=== PATIENT | male | born 1945 | race Caucasian/White ===

== ENCOUNTER 2017-04-03 02:16 | Inpatient (IN) | payer OTHER ==
[~2017-04-03] VITALS: Ht 175.3 cm; Wt 68.0 kg
[~2017-04-03 02:16] MED LIST: ASPIRIN81 M4 PO; DAILY VALUE1 EACH PO; DULCOLAX5 M1 PO; FERROUS SULFAT324 MG PO; GLUCOPHAGE1000 M1 PO; IBUPROFEN200 M3 PO; LIPITOR40 M1 PO; MIRALAX17 G1 PO; OMEPRAZOLE20 M2 PO
--- NOTE | 2017-04-03 02:25 | ED GI/GU/ABDOMINAL COMPLAINT ---
History of Present Illness General Chief Complaint: Abdominal Pain/Flank Pain Stated Complaint: ABD PAIN,NAUSEA, AND VOMITING S/P FACIAL SUGERY Source: patient Exam Limitations: no limitations Vital Signs & Intake/Output Vital Signs & Intake/Output Vital Signs Date Time Temp Pulse Resp B/P B/P Pulse O2 O2 Flow FiO2 Mean Ox Delivery Rate 04/03 0815 97.0 84 20 133/66 96 Room Air 04/03 0613 98.4 80 20 152/78 94 Room Air 04/03 0431 98.0 72 20 151/71 98 Room Air 04/03 0249 98.5 100 18 128/68 94 Room Air Allergies Coded Allergies: No Known Allergies (08/09/16) Reconcile Medications Atorvastatin Calcium (Lipitor) 40 MG TABLET 1 TAB PO DAILY CHOLESTEROL ( Reported) Bisacodyl (Dulcolax) 5 MG TABLET.DR 2 TAB PO AD PRN constipation Chlorhexidine Gluconate (Peridex) 0.12 % MOUTHWASH MOUTH (Reported) Lansoprazole (Prevacid) 30 MG CAPSULE.DR 1 CAP PO DAILY ACID (Reported) Metformin HCl 500 MG TABLET 1 TAB PO BID BLOOD PRESSURE (Reported) Metoprolol Tartrate (Lopressor) 100 MG TABLET 75 MG PO Q8 BLOOD PRESSURE ( Reported) Petrolatum,White (Aquaphor) 41 % OINT...G. FACIAL DONOR SITE (Reported) Polyethylene Glycol 3350 (Miralax) 17 GRAM POWD.PACK 1 PAC PO DAILY constipation dissolve in water Simethicone (Gas Relief) 40 MG/0.6 ML DROPS.SUSP GAS (Reported) Triage Nurses Notes Reviewed? yes Onset: Gradual Duration: day(s):, waxing and waning Timing: recent history Location: generalized abdomen Radiation: no radiation Activities at Onset: none Prior Abdominal Problems: none Modifying Factors: Worsens With: vomiting. Associated Symptoms: nausea/vomiting HPI: 71-year-old gentleman history of tumor on the right side of his face, status post resection 3 months ago, status post prolonged rehabilitation at [facility], presents with 1-2 day history of nausea and vomiting. He states that, "I can't keep anything down. I keep on vomiting." He has no diarrhea. His last bowel movement was yesterday which was normal. He has no chest pain fever shortness of breath dyspnea lightheadedness. He states that his tumor in his face is stable. He is otherwise well. (NEVILLE QUIROS MD) Past History Travel History Traveled to [place] past 21 day No Medical History Any Pertinent Medical History? 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 No (NEVILLE QUIROS MD) Review of Systems Review of Systems Constitutional: Reports: no symptoms. EENTM: Reports: no symptoms. Respiratory: Reports: no symptoms. Cardiovascular: Reports: no symptoms. GI: Reports: no symptoms. Genitourinary: Reports: no symptoms. Musculoskeletal: Reports: no symptoms. Skin: Reports: no symptoms. Neurological/Psychological: Reports: no symptoms. Hematologic/Endocrine: Reports: no symptoms. Immunologic/Allergic: Reports: no symptoms. All Other Systems: Reviewed and Negative (NEVILLE QUIROS MD) Physical Exam Physical Exam General Appearance: well developed/nourished, mild distress Head: right side of face has a large skin graft covering his right forehead and right eye. Status post surgical changes noted. No sign of active infection. Eyes: Bilateral: normal appearance. Ears, Nose, Throat, Mouth: status post surgical changes with a large skin graft from the right side of the face. Neck: normal inspection, supple, full range of motion Respiratory: normal breath sounds, chest non-tender, no respiratory distress, quiet respiration, lungs clear Cardiovascular: regular rate/rhythm Gastrointestinal: soft, non-tender, no organomegaly, g-tube intact on the left side of his abdomen without drainage or signs of infection., diminished bowel sounds Back: normal inspection, normal range of motion Extremities: normal range of motion Neurologic/Psych: no motor/sensory deficits, awake, alert, oriented x 3 Skin: intact, normal color, warm/dry Core Measures ACS in differential dx? No Severe Sepsis Present: No Septic Shock Present: No (NEVILLE QUIROS MD) Progress Differential Diagnosis: gastroenteritis versus food poisoning versus obstruction versus pancreatitis versus cholecystitis versus other. Plan of Care: Orders Procedure Date/time Status PROTHROMBIN TIME 04/04 600 Active MAGNESIUM 04/04 600 Active GLUCOSE 04/04 600 Active CBC WITHOUT DIFFERENTIAL 04/04 600 Active BASIC ELECTROLYTES PLUS BUN&CR 04/04 600 Active TYPE & SCREEN (NOT X-MATCH) 04/04 06 Active Nothing by Mouth 04/03 L Active Admit to inpatient 04/03 0840 Active Code Status 04/03 815 Active Patient Data 04/03 08 Active TROPONIN LEVEL 04/03 220 Complete LIPASE 04/03 220 Complete HEPATIC FUNCTION PANEL 04/03 220 Complete CBC WITHOUT DIFFERENTIAL 04/03 220 Complete BASIC METABOLIC PANEL 04/03 220 Complete AMYLASE 04/03 220 Complete EKG 04/03 220 Active [id number] VIEW 04/03 UNK Active VTE Mechanical Prophylaxis 04/03 UNK Active Vital Signs 04/03 UNK Active Precautions 04/03 UNK Active NGT 04/03 UNK Active Intake & Output 04/03 UNK Active FingerStick- Glucose 04/03 UNK Active Current Medications Sig/Zena Start time Last Medication Dose Stop Time Status Admin Heparin Sodium 5,000 UNIT Q8 04/03 1400 UNVr (Porcine) Metoprolol Tartrate 75 MG Q8 04/03 1400 UNVr (Lopressor) Insulin Human Regular 0 Q6 04/03 1200 AC (NovoLIN R) Famotidine 20 MG BID 04/03 1000 UNVr (Pepcid) Acetaminophen 1,000 MG Q6P PRN 04/03 0830 AC (Ofirmev) N/A 1 UNIT (No Carrier) Morphine Sulfate 2 MG Q4-6 PRN PRN 04/03 0830 AC (Morphine) Dextrose/Sodium 1,000 ML Q10H 04/03 0815 AC 04/03 Chloride 0825 (D5-Normal Saline) Ondansetron HCl 4 MG Q6P PRN 04/03 0815 AC (Zofran) Laboratory Tests 04/03/17 0246: Anion Gap 14, Estimated GFR > 60, BUN/Creatinine Ratio 32.0 H, Glucose 199 H, Calcium 9.9, Total Bilirubin 0.8, Direct Bilirubin 0.3, AST 24, ALT 25, Alkaline Phosphatase 123, Troponin I < 0.01, Total Protein 7.9, Albumin 4.1, Amylase 70, Lipase 50, CBC w Diff NO MAN DIFF REQ, RBC 4.43 L, MCV 83.7, MCH 26.5 L, RDW 16.9 H, MPV 7.7, Gran % 69.5, Lymphocytes % 19.4 L, Monocytes % 10.9 H, Eosinophils % 0, Basophils % 0.2, Absolute Granulocytes 7.6 H, Absolute Lymphocytes 2.1, Absolute Monocytes 1.2 H, Absolute Eosinophils 0, Absolute Basophils 0, PUBS MCHC 31.6 L Diagnostic Imaging: Viewed by Me: CT Scan. Discussed w/RAD: CT Scan. Radiology Impression: abd/pelvic ct... ileoileal intussusception... full report below. Initial ED EKG: normal axis, normal intervals, normal p-waves, normal QRS complex, normal sinus rhythm Hand-Off Endorsed To: AVIS OLEARY MD Endorsed Time: 0700 Pending: consult Comments: PATIENT: FRANCIS OLEARY PRESENT AGE: 71 PATIENT ACCOUNT NO: [id number] : 46 LOCATION: [facility] ORDERING PHYSICIAN: NEVILEL QUIROS MD SERVICE DATE: 04/03/17 EXAM TYPE: CAT - CT ABD & PELVIS W/O IV CONTRAS EXAMINATION: CT ABDOMEN AND PELVIS WITHOUT CONTRAST CLINICAL INFORMATION: Vomiting. COMPARISON: FDG PET/CT whole body 11/08/2016. TECHNIQUE: Multidetector volumetric imaging was performed from the superior aspect of the liver through the pubic symphysis. Sagittal and coronal reformatted images were obtained on the technologist's workstation. DLP: 283.54 mGy-cm FINDINGS: LUNG BASES: There is minimal bibasilar subsegmental atelectasis. No pleural or perineural invasion. LIVER, GALLBLADDER, AND BILIARY TREE: Unenhanced liver attenuation is homogeneous and there is no evidence of a discrete hepatic parenchymal mass. The gallbladder is unremarkable with no evidence of radiopaque gallstones, gallbladder wall thickening, or obvious pericholecystic inflammatory changes. PANCREAS: Unremarkable. SPLEEN: Unremarkable. 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 KIDNEYS AND URETERS: Kidneys are symmetric in size. There is no hydroureteronephrosis. No abnormal perinephric inflammation or collection. No abnormal mass or calcifications visualized along the expected course of the right or left ureters. BLADDER: Unremarkable. GASTROINTESTINAL TRACT: A gastrostomy tube is in place. There is an ileoileal intussusception within the right lower quadrant and circumferential mucosal edema surrounding the intussusceptum have substantially progressed when compared to prior imaging. This intussusception causes a high-grade small bowel obstruction. Air-fluid levels are visualized within the majority of proximal small bowel loops. Numerous diverticula are visualized within the sigmoid:. ABDOMINAL WALL: There is a gastrostomy tube in place. The abdominal wall is otherwise intact. LYMPH NODES: No pathologically enlarged mesenteric or retroperitoneal lymph nodes. VASCULAR: Heavily calcified atheromatous plaque involves the abdominal aorta and iliac vessels. Inferior vena cava is unremarkable. PELVIC VISCERA: Unremarkable. OSSEOUS STRUCTURES: There is no acute osseous finding. Specifically no worrisome lytic or blastic osseous lesion. IMPRESSION: There is an ileoileal intussusception within the right lower quadrant and there is circumferential mucosal edema surrounding the intussusceptum that has substantially increased when compared to prior imaging. This finding causes severe high-grade small bowel obstruction. In an adult that presents with intussusception a leading small bowel mucosal mass should be considered. DICTATED BY: SALINA REYES MD DATE/TIME DICTATED:04/03/17541 FLATWORK TIER:LENOORA DATE/TIME TRANSCRIBED:04/03/17541 CONFIDENTIAL, DO NOT COPY WITHOUT APPROPRIATE AUTHORIZATION. <Electronically signed in Other Vendor System> SIGNED BY: SALINA REYES MD 04/03 0556 (GUMARO DENSON,NEVILLE Mares) Comments: 04/03/2017 7:22:47 AM patient signed out to me by Dr. Quiros at shift change lead. 04/03/2017 8:44:11 AM Francis has been treated with intravenous fluids with resolution of his presenting tachycardia. He has been evaluated by the surgical service and will be admitted for ileal intussusception and resulting small bowel obstruction. (MARVIN DENSON,AVIS Thompson) Departure Departure Disposition: STILL A PATIENT Condition: Stable Referrals: DIANNE TOBIAS MD Departure Forms: Customer Survey General Discharge Information Comments 04/03/17, 6:37am... discussed with dr. valles...He advocated opening the gastrostomy tube. Suction not needed. Discussed with surgical PA who will evaluate. pt signed out to dr. oleary at 04/03/17, 7am. (GUMARO DENSON,NEVILLE Mares) Departure Clinical Impression Primary Impression: Intussusception Secondary Impressions: Small bowel obstruction Admission Note Spoke With: JOSE DENSON,DANA Robison Documentation of Exam: Documentation of any treatments & extenuating circumstances including Concerns Regarding Discharge (functional status, medication knowledge or non-compliance, living conditions, etc.) that warrant an admission rather than observation: Patient has a small bowel obstruction as a result of an ileal intussusception. The patient is at very high risk of dehydration due to decreased pedal intake secondary to vomiting, along with worsening small bowel obstruction, abdominal pain, perforation, peritonitis and mortality. The patient requires IV fluids to prevent dehydration and decompression of the gastrointestinal tract. Patient should have serial abdominal examinations and imaging studies as indicated. If symptoms do not resolve with bowel rest and surgical exploration should be considered. Given this patient's advanced age and medical comorbidities I feel he will require a multiple day hospitalization. (MARVIN DENSON,AVIS Thompson) Critical Care Note Critical Care Note Critical Care Time: 30-74 min (MARVIN DESNON,AVIS Thompson)
--- NOTE | 2017-04-03 02:31 | NUR ---
PT TO TRIAGE WITH SON. PT REPORTS ABD PAIN, N/V. PT HAD FACIAL SURGERY D/T CANCER 3 MONTHS AGO AND WAS AT [facility] UNTIL 1 WEEK AGO. PT HAS G TUBE BUT CAN STILL SWALLOW.
--- NOTE | 2017-04-03 02:32 | NUR ---
PT DENIES CP/SOB.
--- NOTE | 2017-04-03 02:48 | NUR ---
MD NAIK AT BEDSIDE TO SEAN
--- NOTE | 2017-04-03 02:56 | NUR ---
LABS OBTAINED VIA [facility], SENT TO LAB (1SST,1LAV,1BLUE,1GRAY,1PINK)
--- NOTE | 2017-04-03 03:00 | NUR ---
MEDICATED WITH ZOFRAN AND PEPCID PER eMAR FOR NAUSEA AND ACTIVE VOMITING. ASPIRATED APPROX 20ML STOMACH CONTENTS FROM G-TUBE BEFORE FEELING RESISTANCE. 20ML WATER FLUSHED IN AND TUBE CLAMPED. TOLERATED WELL. WILL CONT TO MONITOR. CONTINUES TO ENDORSE INTERMITTENT ABDOMINAL PAINS, NONE WITH PALPATION OF ABDOMEN
[2017-04-03 03:08] LABS: ABSOLUTE BASOPHIL COUNT 0 /CUMM (0.0-0.2); ABSOLUTE EOSINOPHIL COUNT 0 /CUMM (0.0-0.7); ABSOLUTE GRANULOCYTE CT 7.6 /CUMM (1.4-6.5); ABSOLUTE LYMPH COUNT 2.1 /CUMM (1.2-3.4); ABSOLUTE MONOCYTE COUNT 1.2 /CUMM (0.10-0.60); BASOPHIL % 0.2 % (0.0-2.0); EOSINOPHIL % 0 % (0-5); GRANULOCYTE % 69.5 % (42.2-75.2); HEMATOCRIT 37.1 % (42-52); MEAN CORPUSCULAR HGB 26.5 PG (27.0-31.0); MEAN CORPUSCULAR HGB CONC 31.6 G/DL (33.0-37.0); MEAN CORPUSCULAR VOLUME 83.7 FL (80.0-94.0); MEAN PLATELET VOLUME 7.7 FL (7.4-10.4); PLATELET COUNT 360 /CUMM (130-400); RBC DISTRIBUTION WIDTH 16.9 % (11.5-14.5); RED BLOOD CELL CT 4.43 /CUMM (4.70-6.10); WHITE BLOOD CELL COUNT 10.9 /CUMM (4.8-10.8)
--- NOTE | 2017-04-03 03:10 | NUR ---
Report received from Flavia RN, pt care assumed. Pt resting comfortably on stretcher with family at bedside. Pt awaiting lab results.
[2017-04-03] MEDS ORDERED: LIPITOR40 M1 PO (03:15)
[2017-04-03] MEDS ORDERED: METFORMIN HCL500 M3 PO (03:16)
[2017-04-03] MEDS ORDERED: LOPRESSOR100 M1 PO (03:19)
[2017-04-03] MEDS ORDERED: AQUAPHOR396 GM (03:19)
[2017-04-03] MEDS ORDERED: PERIDEX473 ML (03:20)
[2017-04-03] MEDS ORDERED: GAS RELIEF40 MG/0.2 (03:21)
[2017-04-03] MEDS ORDERED: PREVACID30 M1 PO (03:21)
--- NOTE | 2017-04-03 03:30 | NUR ---
IV NS BOLUS STARTED PER eMAR. PT LIGHTS DIMMED PER PT REQUEST. PT RESTING COMFORTABLY AT THIS TIME. FAMILY REMAINS AT BEDSIDE.
--- NOTE | 2017-04-03 04:16 | NUR ---
PT RESTING COMFORTABLY AT THIS TIME WITH NO COMPLAINTS, IV NS BOLUS INFUSING. PT AND FAMILY UPDATED THAT PT AWAITING CT FOR IMAGING OF ABD DUE TO VOMITTING
--- NOTE | 2017-04-03 04:20 | NUR ---
PT REPORTS RELIEF OF VOMITTING. FAMILY REMAINS AT BEDSIDE
--- NOTE | 2017-04-03 04:21 | NUR ---
PT TO CT SCAN WITH SENIOR COUNSEL
--- NOTE | 2017-04-03 04:30 | NUR ---
Pt back from CT scan with 4th grade teacher. Pt denies any pain at this time. VSS
--- NOTE | 2017-04-03 05:18 | NUR ---
Pt awaiting CT results. Pt remains pain free and resting comfortably on stretcher. Family at bedside
--- NOTE | 2017-04-03 05:56 | CT SCAN REPORT ---
EXAMINATION: CT ABDOMEN AND PELVIS WITHOUT CONTRAST CLINICAL INFORMATION: Vomiting. COMPARISON: FDG PET/CT whole body 11/08/2016. TECHNIQUE: Multidetector volumetric imaging was performed from the superior aspect of the liver through the pubic symphysis. Sagittal and coronal reformatted images were obtained on the technologist's workstation. DLP: 283.54 mGy-cm FINDINGS: LUNG BASES: There is minimal bibasilar subsegmental atelectasis. No pleural or perineural invasion. LIVER, GALLBLADDER, AND BILIARY TREE: Unenhanced liver attenuation is homogeneous and there is no evidence of a discrete hepatic parenchymal mass. The gallbladder is unremarkable with no evidence of radiopaque gallstones, gallbladder wall thickening, or obvious pericholecystic inflammatory changes. PANCREAS: Unremarkable. SPLEEN: Unremarkable. 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 KIDNEYS AND URETERS: Kidneys are symmetric in size. There is no hydroureteronephrosis. No abnormal perinephric inflammation or collection. No abnormal mass or calcifications visualized along the expected course of the right or left ureters. BLADDER: Unremarkable. GASTROINTESTINAL TRACT: A gastrostomy tube is in place. There is an ileoileal intussusception within the right lower quadrant and circumferential mucosal edema surrounding the intussusceptum have substantially progressed when compared to prior imaging. This intussusception causes a high-grade small bowel obstruction. Air-fluid levels are visualized within the majority of proximal small bowel loops. Numerous diverticula are visualized within the sigmoid:. ABDOMINAL WALL: There is a gastrostomy tube in place. The abdominal wall is otherwise intact. LYMPH NODES: No pathologically enlarged mesenteric or retroperitoneal lymph nodes. VASCULAR: Heavily calcified atheromatous plaque involves the abdominal aorta and iliac vessels. Inferior vena cava is unremarkable. PELVIC VISCERA: Unremarkable. OSSEOUS STRUCTURES: There is no acute osseous finding. Specifically no worrisome lytic or blastic osseous lesion. IMPRESSION: There is an ileoileal intussusception within the right lower quadrant and there is circumferential mucosal edema surrounding the intussusceptum that has substantially increased when compared to prior imaging. This finding causes severe high-grade small bowel obstruction. In an adult that presents with intussusception a leading small bowel mucosal mass should be considered.
--- NOTE | 2017-04-03 06:11 | NUR ---
Dr. Quiros at bedside for re-eval and to discuss CT scan results with patient and family. Pt aware of plan of care, to be admitted to hosptal. Per son he will return later in the morning and can be reached via cell phone if there is any issue. VSS as noted.
--- NOTE | 2017-04-03 07:05 | NUR ---
ASSUMED CARE, SURGICAL PA AT BEDSIDE.
--- NOTE | 2017-04-03 08:20 | NUR ---
X-RAY AT BEDSIDE. FINGERSTICK 68. D5NS @ 100 INFUSING PER EMAR. AWAITING GEN MED BED. SON AT BEDSIDE. PT AND SON AWARE OF NPO STATUS. Informed waiting has been performed.
--- NOTE | 2017-04-03 08:24 | Admission Core Measures ---
Admission Lab Results I reviewed the following labs: Laboratory Tests 04/03 0246 Chemistry Sodium (137 - 145 mmol/L) 138 Potassium (3.5 - 5.1 mmol/L) 4.5 Chloride (98 - 107 mmol/L) 95 L Carbon Dioxide (22 - 30 mmol/L) 29 Anion Gap (5 - 16) 14 BUN (9 - 20 mg/dL) 32 H Creatinine (0.7 - 1.2 mg/dL) 1.0 Estimated GFR (>60 ml/min) > 60 BUN/Creatinine Ratio (7 - 25 %) 32.0 H Glucose (65 - 99 mg/dL) 199 H Calcium (8.4 - 10.2 mg/dL) 9.9 Total Bilirubin (0.2 - 1.3 mg/dL) 0.8 Direct Bilirubin (< 0.4 mg/dL) 0.3 AST (17 - 59 U/L) 24 ALT (21 - 72 U/L) 25 Alkaline Phosphatase (< 127 U/L) 123 Troponin I (<0.11 ng/ml) < 0.01 Total Protein (6.3 - 8.2 g/dL) 7.9 Albumin (3.5 - 5.0 g/dL) 4.1 Amylase (30 - 110 U/L) 70 Lipase (23 - 300 U/L) 50 Hematology CBC w Diff NO MAN DIFF REQ WBC (4.8 - 10.8 /CUMM) 10.9 H RBC (4.70 - 6.10 /CUMM) 4.43 L Hgb (14.0 - 18.0 G/DL) 11.7 L Hct (42 - 52 %) 37.1 L MCV (80.0 - 94.0 FL) 83.7 MCH (27.0 - 31.0 PG) 26.5 L RDW (11.5 - 14.5 %) 16.9 H Plt Count (130 - 400 /CUMM) 360 MPV (7.4 - 10.4 FL) 7.7 Gran % (42.2 - 75.2 %) 69.5 Lymphocytes % (20.5 - 51.1 %) 19.4 L Monocytes % (1.7 - 9.3 %) 10.9 H Eosinophils % (0 - 5 %) 0 Basophils % (0.0 - 2.0 %) 0.2 Absolute Granulocytes (1.4 - 6.5 /CUMM) 7.6 H Absolute Lymphocytes (1.2 - 3.4 /CUMM) 2.1 Absolute Monocytes (0.10 - 0.60 /CUMM) 1.2 H Absolute Eosinophils (0.0 - 0.7 /CUMM) 0 Absolute Basophils (0.0 - 0.2 /CUMM) 0 PUBS MCHC (33.0 - 37.0 G/DL) 31.6 L Admission Meds I reviewed the following Meds: Current Medications Sig/Zena Start time Last Medication Dose Stop Time Status Admin Acetaminophen 1,000 MG Q6P PRN 04/03 0830 AC (Ofirmev) N/A 1 UNIT (No Carrier) Dextrose/Sodium 1,000 ML Q10H 04/03 0815 UNVr Chloride (D5-Normal Saline) Famotidine 20 MG BID 04/03 1000 UNVr (Pepcid) Heparin Sodium 5,000 UNIT Q8 04/03 1400 UNVr (Porcine) Insulin Human Regular 0 Q6 04/03 1200 UNVr (NovoLIN R) Metoprolol Tartrate 75 MG Q8 04/03 1400 UNVr (Lopressor) Morphine Sulfate 2 MG Q4-6 PRN PRN 04/03 0830 AC (Morphine) Ondansetron HCl 4 MG Q6P PRN 04/03 0815 UNVr (Zofran) Acute Coronary Syndrome Inclusion Criteria ACS Diagnosis No Inpatient Core Measures LDL Reminder: If No, please order W/I first 24hr of stay Congestive Heart Failure Inclusion Criteria CHF Diagnosis No Cerebrovascular accident Inclusion Criteria CVA/TIA Diagnosis No Inpatient Core Measures Bedside Swallow Eval Reminder: If BSE failed, place ST order Antithrombotic Reminder: Order Antithrombotic Medication by end of day 2 Antithrombotic Reminder: Document Reason Antithrombotic Not ordered by end of day 2 AFIB/Flutter Reminder: If Present, add to problem list AFIB/Flutter Reminder: Order Anticoag Medication for pts with AFIB/Flutter Atherosclerosis Reminder: If Present, add to problem list LDL Reminder: If No, please order W/I first 24hr of stay PT Order Reminder: If No, please order Venous thromboembolism Inpatient Core Measures VTE Risk Factors: Age > 40, Surgery No Mech VTE prophylaxis d/t No contraindications No VTE Pharm Prophylaxis d/t No contraindications Inclusion Criteria - Per Current guidelines, there needs to be overlap - treatment for the first 5 days of Warfarin therapy. - Parenteral Anticoagulation (IV or SC) needs to be - given along with Warfarin therapy. VTE Diagnosis No VTE Type NONE VTE Confirmed by (Test) NONE Problem List As ranked by this Provider includes Assessment & Plan 1. Ileal intussusception 2. Small bowel obstruction HOME MEDS Home Med List Atorvastatin Calcium (Lipitor) 40 MG TABLET 1 TAB PO DAILY CHOLESTEROL ( Reported) Bisacodyl (Dulcolax) 5 MG TABLET.DR 2 TAB PO AD PRN constipation Lansoprazole (Prevacid) 30 MG CAPSULE.DR 1 CAP PO DAILY ACID (Reported) Metformin HCl 500 MG TABLET 1 TAB PO BID BLOOD PRESSURE (Reported) Metoprolol Tartrate (Lopressor) 100 MG TABLET 75 MG PO Q8 BLOOD PRESSURE ( Reported) Polyethylene Glycol 3350 (Miralax) 17 GRAM POWD.PACK 1 PAC PO DAILY constipation
--- NOTE | 2017-04-03 08:55 | RADIOLOGY REPORT ---
EXAMINATION: XR ABDOMEN CLINICAL INDICATION: Small bowel obstruction. Nasogastric tube placed via gastrostomy. COMPARISON: CT scan of the abdomen and pelvis earlier 04/03/2017. TECHNIQUE: AP view of the abdomen. FINDINGS: Since the prior study, a tube has been passed through the gastrostomy, and is coiled within the gastric lumen. The small bowel loops are still dilated in the left upper abdomen. A linear metallic object is redemonstrated in the epigastrium to the left of midline. Multiple surgical clips are seen projected over the right upper abdomen. The osseous structures are unremarkable. IMPRESSION: 1. There is a nasogastric tube entering the stomach through the gastrostomy, which is coiled within the gastric lumen. 2. Persistent dilatation of the small bowel loops in the left upper abdomen.
--- NOTE | 2017-04-03 09:00 | NUR ---
PT'S SON PAUL IS LEAVING, WOULD LIKE TO BE CALLED WHEN PT GETS A ROOM. [phone].
--- NOTE | 2017-04-03 09:15 | NUR ---
SPOKE WITH SEMICONDUCTOR BONDER DAHLIA ABOUT A BED FOR PT, SHE STATED "NOT NOW". PT AWARE OF CONTINUED WAIT FOR GEN MED BED. Informed waiting has been performed.
--- NOTE | 2017-04-03 09:54 | NUR ---
DR GARCIA AT BEDSIDE.
--- NOTE | 2017-04-03 10:54 | NUR ---
MAGGY TO AWAIT GEN MED BED. STRIPPER MACHINE OPERATOR DAHLIA CALLED, NO BED YET. PT AND FAMILY AWARE OF CONTINUED DELAY. Informed waiting has been performed.
[2017-04-03 11:00] VITALS: BP 104/53
--- NOTE | 2017-04-03 12:00 | NUR ---
MEDICATED WITH SC INSULIN PER EMAR AND SLIDING SCALE. PT CONTINUES TO AWAIT GEN MED BED. PT BEGINNING TO GET UPSET WITH WAIT TIME FOR BED. PT EDUCATED ON PROCESS OF ASSIGNING BEDS. Informed waiting has been performed.
--- NOTE | 2017-04-03 12:30 | NUR ---
PT CONTINUES TO AWAIT GEN [facility] BED. PT EDUCATED ON NEED FOR ADMISSION, IVF, NPO STATUS AND NGT TO PEG TUBE TO LOW WALL SUCTION. PT UNDERSTANDS NEED FOR ADMISSION, IN AGREEMENT WITH PLAN. WILL CONTINUE TO MONITOR. Informed waiting has been performed.
--- NOTE | 2017-04-03 13:00 | NUR ---
PT REQUESTING TO SEE SURGICAL LILIA BEASLEY. SPOKE WITH GALE WHO IS UNABLE TO COME SEE PT AT THIS TIME.
--- NOTE | 2017-04-03 13:16 | NUR ---
CONT TO AWAIT BED,PER BOOK SEWING MACHINE OPERATOR SAME DAYS MUST BE PLACED 1ST.
[2017-04-03 13:40] VITALS: BP 115/60
--- NOTE | 2017-04-03 14:15 | NUR ---
THIS RN WENT IN TO SPEAK WITH PT, EXPLAINED HOW I AM THE CHARGE NURSE ON DUTY CURRENTLY. EXPLAINED HOW WE ARE CURRENTLY AWAITING A BED UPSTAIRS. PT NOTED TO BE VERY FRUSTRATED. STATES HE HAS NOT SEEN ANY OF HIS PROVIDERS SINCE 930 THIS AM. STATES IF HE DOES NOT GET SEEN SOON HE WILL WALK OUT, STATES "I CAN SIT HERE AND DO THIS ALL DAY AT HOME IF I WANTED TO." SPOKE WITH SURGICAL PA, WHO STATES SHE IS UNABLE TO COME DOWN TO SPEAK WITH PT CURRENTLY. STAMP COLLECTOR PAGED AT THIS TIME.
--- NOTE | 2017-04-03 14:30 | NUR ---
BUSINESS COMMUNICATIONS INSTRUCTOR DAHLIA CALVO TO SPEAK WITH PT.
--- NOTE | 2017-04-03 14:35 | NUR ---
NURSING INVENTORY ASSOCIATE MADE AWARE OF SITUATION WITH PT AND SURGICAL TEAM. INVENTORY ASSOCIATE WENT IN TO SPEAK WITH PT HERSELF, STATES HE ONLY WANTS TO SPEAK WITH A PROVIDER CURRENTLY AND NOT NURSING. NURSING INVENTORY ASSOCIATE TO SPEAK WITH SURGICAL TEAM.
--- NOTE | 2017-04-03 15:20 | NUR ---
REPORT HANDED OFF TO IBETH HANLEY.
--- NOTE | 2017-04-03 15:32 | NUR ---
PT ASSIGNED TO ROOM 233
--- NOTE | 2017-04-03 15:33 | NUR ---
PT ASKING TO LEAVE AMA, CALLED GALE RODRIGUES, AND SHE STATES SHE WILL BE DOWN [facility]. PT ASKED TO WAIT TO SPEAK WITH PA. PT EXPLAINED WHAT HE IS WAITING FOR AND THE POC, BUT DOES NOT WANT TO WAIT ANY LONGER FOR HIS BED OR PROVIDER
--- NOTE | 2017-04-03 15:38 | NUR ---
PT DEMANDED TO THIS RN TO HAVE HIS IV REMOVED. PT STATES HE IS LEAVING RIGHT NOW AND WILL NOT WAIT ANY LONGER TO SPEAK TO THE DOCTOR. IV REMOVED. LEFT LEFT EMERGENCY DEPARTMENT WITH ABDIRASHID PHELPS AND SAID HE WILL FOLLOW UP WITH DR GARCIA. SENIOR PEOPLESOFT DEVELOPER GA Leong RN NOTIFIED. DR WONG NOTIFIED.
== END 2017-04-03 15:38 | disposition left against medical advice (07) | DRG 390 ==
LOC: ERH 02:16 → ERHI 08:40 → ENRESERV 15:14 → CANRESERV 15:14 → ERHI 15:38
PROVIDERS: Pediatrics; ADMIT Surgery
DX: K56.60 Unspecified intestinal obstruction (principal); Z93.1 Gastrostomy status; K56.1 Intussusception; Z98.890 Other specified postprocedural states
CPT/HCPCS: ERO; 74000; 74176; 82436; 93005; 93010; 96361; 96374; 96375; 99291; J0131; J1644; J1815; J2405; J7042

== ENCOUNTER 2017-04-06 02:19 | Emergency (ER) | payer OTHER ==
[~2017-04-06] VITALS: Ht 175.3 cm; Wt 74.8 kg
[~2017-04-06 02:19] MED LIST changes: +AQUAPHOR396 GM; +GAS RELIEF40 MG/0.2; +LOPRESSOR100 M1 PO; +METFORMIN HCL500 M3 PO; +PERIDEX473 ML; +PREVACID30 M1 PO
--- NOTE | 2017-04-06 02:35 | ED GI/GU/ABDOMINAL COMPLAINT ---
History of Present Illness General Chief Complaint: Abdominal Pain/Flank Pain Stated Complaint: SEEN HERE THIS WEEK ABD PAIN "INTESTIONAL ISSUES" Source: patient Exam Limitations: no limitations Vital Signs & Intake/Output Vital Signs & Intake/Output Vital Signs Date Time Temp Pulse Resp B/P B/P Pulse O2 O2 Flow FiO2 Mean Ox Delivery Rate 04/06 0237 96.8 82 18 163/75 97 Room Air Allergies Coded Allergies: No Known Allergies (08/09/16) Reconcile Medications Atorvastatin Calcium (Lipitor) 40 MG TABLET 1 TAB PO DAILY CHOLESTEROL ( Reported) Bisacodyl (Dulcolax) 5 MG TABLET.DR 2 TAB PO AD PRN constipation Chlorhexidine Gluconate (Peridex) 0.12 % MOUTHWASH MOUTH (Reported) Lansoprazole (Prevacid) 30 MG CAPSULE.DR 1 CAP PO DAILY ACID (Reported) Metformin HCl 500 MG TABLET 1 TAB PO BID BLOOD PRESSURE (Reported) Metoprolol Tartrate (Lopressor) 100 MG TABLET 75 MG PO Q8 BLOOD PRESSURE ( Reported) Petrolatum,White (Aquaphor) 41 % OINT...G. FACIAL DONOR SITE (Reported) Polyethylene Glycol 3350 (Miralax) 17 GRAM POWD.PACK 1 PAC PO DAILY constipation dissolve in water Simethicone (Gas Relief) 40 MG/0.6 ML DROPS.SUSP GAS (Reported) Triage Nurses Notes Reviewed? yes Onset: Gradual Duration: day(s): Timing: recent history Quality/Severity: cramping Location: generalized abdomen Radiation: no radiation Activities at Onset: none Prior Abdominal Problems: similar symptoms Modifying Factors: Worsens With: eating. Associated Symptoms: abdominal pain, nausea/vomiting HPI: 71-year-old gentleman history of craniopharyngioma status post resection, status post gastrostomy tube, presents with 3-4 hours of abdominal discomfort and bloating. He was seen 3 days ago and was diagnosed with an intussusception. He was admitted to the hospital, but left AMA when he was unable to get a bed. He states, "I hardly eat anything. But then I had dinner last night. Then, around 11:30 I started having really really bad abdominal pain." He notes no vomiting. His last bowel movement was 2 days ago in the morning. He has no fever chills dysuria shortness of breath or chest pain. Past History Medical History Any Pertinent Medical History? 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 No Review of Systems Review of Systems Constitutional: Reports: no symptoms. EENTM: Reports: no symptoms. Respiratory: Reports: no symptoms. Cardiovascular: Reports: no symptoms. GI: Reports: no symptoms. Genitourinary: Reports: no symptoms. Musculoskeletal: Reports: no symptoms. Skin: Reports: no symptoms. Neurological/Psychological: Reports: no symptoms. Hematologic/Endocrine: Reports: no symptoms. Immunologic/Allergic: Reports: no symptoms. All Other Systems: Reviewed and Negative Physical Exam Physical Exam General Appearance: well developed/nourished, mild distress Head: atraumatic, normal appearance Eyes: Bilateral: normal appearance. Ears, Nose, Throat, Mouth: hearing grossly normal Neck: normal inspection, supple, full range of motion, normal alignment Respiratory: normal breath sounds, chest non-tender, no respiratory distress, quiet respiration, lungs clear Cardiovascular: regular rate/rhythm Gastrointestinal: normal bowel sounds, soft, mild diffuse tenderness. Mild distention. Diminished bowel sounds. Back: normal inspection, normal range of motion Extremities: normal range of motion Neurologic/Psych: no motor/sensory deficits, awake, alert, oriented x 3 Skin: intact, normal color, warm/dry Core Measures ACS in differential dx? No Severe Sepsis Present: No Septic Shock Present: No Progress Differential Diagnosis: intussusception versus small bowel obstruction versus other. Plan of Care: Orders Procedure Date/time Status TROPONIN LEVEL 04/06 227 Complete LIPASE 04/06 227 Complete LACTIC ACID 04/06 227 Complete HEPATIC FUNCTION PANEL 04/06 227 Complete CBC WITHOUT DIFFERENTIAL 04/06 227 Complete BASIC METABOLIC PANEL 04/06 227 Complete AMYLASE 04/06 227 Complete EKG 04/06 227 Active Laboratory Tests 04/06/17 0313: Anion Gap 10, Estimated GFR > 60, BUN/Creatinine Ratio 30.0 H, Glucose 204 H, Lactic Acid 1.4, Calcium 8.7, Total Bilirubin 0.5, Direct Bilirubin 0.3, AST 20, ALT 28, Alkaline Phosphatase 108, Troponin I < 0.01, Total Protein 6.6, Albumin 3.4 L, Amylase 87, Lipase 196, CBC w Diff NO MAN DIFF REQ, RBC 3.93 L, MCV 83.3, MCH 26.5 L, RDW 16.5 H, MPV 7.4, Gran % 81.4 H, Lymphocytes % 12.1 L, Monocytes % 6.3, Eosinophils % 0, Basophils % 0.2, Absolute Granulocytes 6.9 H, Absolute Lymphocytes 1.0 L, Absolute Monocytes 0.5, Absolute Eosinophils 0, Absolute Basophils 0, PUBS MCHC 31.8 L Diagnostic Imaging: Viewed by Me: CT Scan. Discussed w/RAD: CT Scan. Radiology Impression: abd/pelvic ct ... resolution of intussusception...full report below Initial ED EKG: normal axis, normal intervals, normal p-waves, normal QRS complex, normal sinus rhythm Comments: PATIENT: CHEPE GUEVARA PRESENT AGE: 71 PATIENT ACCOUNT NO: [id number] : 46 LOCATION: [facility] ORDERING PHYSICIAN: NEVILLE NAIK MD SERVICE DATE: 04/06/17 EXAM TYPE: CAT - CT ABD & PELVIS W/O IV CONTRAS EXAMINATION: CT ABDOMEN AND PELVIS WITHOUT CONTRAST CLINICAL INFORMATION: Abdominal pain. History of intussusception. Small bowel obstruction. COMPARISON: CT scan of the abdomen and pelvis 04/03/2017. TECHNIQUE: Multidetector volumetric imaging was performed from the superior aspect of the liver through the pubic symphysis. Sagittal and coronal reformatted images were obtained on the technologist's workstation. DLP: 300.32 mGy-cm FINDINGS: LUNG BASES: There is mild bibasilar subsegmental atelectasis. No pleural pericardial effusion. LIVER, GALLBLADDER, AND BILIARY TREE: Liver attenuation is homogeneous with no evidence of a discrete hepatic parenchymal mass. The gallbladder is unremarkable with no evidence of radiopaque gallstones, gallbladder wall thickening, or obvious pericholecystic inflammatory changes. PANCREAS: Unremarkable. SPLEEN: Unremarkable. ADRENAL GLANDS: An ovoid low-density rounded lesion involving the posterior limb of the right adrenal gland is redemonstrated. KIDNEYS AND URETERS: The kidneys are normal in size, shape, and attenuation. No hydronephrosis, hydroureter, or calculi seen. No perinephric stranding. BLADDER: Unremarkable. GASTROINTESTINAL TRACT: The ileoileal intussusception appears to have resolved. There is mild nonspecific stranding within the mesenteric fat of the distal small bowel. There is a small volume of fluid layering within the pelvis. No free intraperitoneal air. Innumerable diverticula are visualized primarily affecting the sigmoid colon. No evidence of small bowel obstruction. Of note there is a gastrostomy tube with its tip located within the body of the stomach. ABDOMINAL WALL: No significant hernia is appreciated. LYMPH NODES: There are no pathologically enlarged mesenteric or retroperitoneal lymph nodes. VASCULAR: Heavily calcified atheromatous plaque involves the abdominal aorta and iliac vessels. The unenhanced aorta and inferior vena cava are otherwise unremarkable. OSSEOUS STRUCTURES: There is no acute osseous finding. No worrisome lytic or blastic osseous lesion. IMPRESSION: The ileoileal intussusception appears to have resolved when compared to the most recent prior examination from 04/03/2017. No small bowel obstruction. There is mild residual nonspecific stranding within the mesenteric fat of the distal small bowel. A small volume of simple fluid layers within the pelvis. Otherwise stable examination. There is extensive diverticulosis primarily affecting the sigmoid colon. DICTATED BY: SALINA REYES MD DATE/TIME DICTATED:04/06/17416 SAUTE CHEF:LEONORA DATE/TIME TRANSCRIBED:04/06/17416 CONFIDENTIAL, DO NOT COPY WITHOUT APPROPRIATE AUTHORIZATION. <Electronically signed in Other Vendor System> SIGNED BY: SALINA REYES MD 04/06 0430 Departure Departure Disposition: HOME OR SELF CARE Condition: Stable Clinical Impression Primary Impression: Abdominal pain Referrals: PATIENT HAS NO PRIMARY CARE DR (PCP/Family) Departure Forms: Customer Survey General Discharge Information Comments 04/06/17, 5am... pt reports that he began feeling better "just like that... in an instant," upon arrival to the ED.... CT SCAN negative for intussusception. I suspect that his sbo self-reduced. We discussed this at great length. Mr. Guevara would like to go home. No vomiting in ED. He is feeling well. Pt referred to Dr. Perez. Close follow up advised.
[2017-04-06 03:26] LABS: ABSOLUTE BASOPHIL COUNT 0 /CUMM (0.0-0.2); ABSOLUTE EOSINOPHIL COUNT 0 /CUMM (0.0-0.7); ABSOLUTE GRANULOCYTE CT 6.9 /CUMM (1.4-6.5); ABSOLUTE MONOCYTE COUNT 0.5 /CUMM (0.10-0.60); BASOPHIL % 0.2 % (0.0-2.0); EOSINOPHIL % 0 % (0-5); GRANULOCYTE % 81.4 % (42.2-75.2); HEMATOCRIT 32.7 % (42-52); MEAN CORPUSCULAR HGB 26.5 PG (27.0-31.0); MEAN CORPUSCULAR HGB CONC 31.8 G/DL (33.0-37.0); MEAN CORPUSCULAR VOLUME 83.3 FL (80.0-94.0); MEAN PLATELET VOLUME 7.4 FL (7.4-10.4); PLATELET COUNT 266 /CUMM (130-400); RBC DISTRIBUTION WIDTH 16.5 % (11.5-14.5); RED BLOOD CELL CT 3.93 /CUMM (4.70-6.10); WHITE BLOOD CELL COUNT 8.5 /CUMM (4.8-10.8)
--- NOTE | 2017-04-06 04:30 | CT SCAN REPORT ---
EXAMINATION: CT ABDOMEN AND PELVIS WITHOUT CONTRAST CLINICAL INFORMATION: Abdominal pain. History of intussusception. Small bowel obstruction. COMPARISON: CT scan of the abdomen and pelvis 04/03/2017. TECHNIQUE: Multidetector volumetric imaging was performed from the superior aspect of the liver through the pubic symphysis. Sagittal and coronal reformatted images were obtained on the technologist's workstation. DLP: 300.32 mGy-cm FINDINGS: LUNG BASES: There is mild bibasilar subsegmental atelectasis. No pleural pericardial effusion. LIVER, GALLBLADDER, AND BILIARY TREE: Liver attenuation is homogeneous with no evidence of a discrete hepatic parenchymal mass. The gallbladder is unremarkable with no evidence of radiopaque gallstones, gallbladder wall thickening, or obvious pericholecystic inflammatory changes. PANCREAS: Unremarkable. SPLEEN: Unremarkable. ADRENAL GLANDS: An ovoid low-density rounded lesion involving the posterior limb of the right adrenal gland is redemonstrated. KIDNEYS AND URETERS: The kidneys are normal in size, shape, and attenuation. No hydronephrosis, hydroureter, or calculi seen. No perinephric stranding. BLADDER: Unremarkable. GASTROINTESTINAL TRACT: The ileoileal intussusception appears to have resolved. There is mild nonspecific stranding within the mesenteric fat of the distal small bowel. There is a small volume of fluid layering within the pelvis. No free intraperitoneal air. Innumerable diverticula are visualized primarily affecting the sigmoid colon. No evidence of small bowel obstruction. Of note there is a gastrostomy tube with its tip located within the body of the stomach. ABDOMINAL WALL: No significant hernia is appreciated. LYMPH NODES: There are no pathologically enlarged mesenteric or retroperitoneal lymph nodes. VASCULAR: Heavily calcified atheromatous plaque involves the abdominal aorta and iliac vessels. The unenhanced aorta and inferior vena cava are otherwise unremarkable. OSSEOUS STRUCTURES: There is no acute osseous finding. No worrisome lytic or blastic osseous lesion. IMPRESSION: The ileoileal intussusception appears to have resolved when compared to the most recent prior examination from 04/03/2017. No small bowel obstruction. There is mild residual nonspecific stranding within the mesenteric fat of the distal small bowel. A small volume of simple fluid layers within the pelvis. Otherwise stable examination. There is extensive diverticulosis primarily affecting the sigmoid colon.
[2017-04-06 05:08] VITALS: BP 137/69
== END 2017-04-06 05:27 ==
LOC: ERH 02:19
PROVIDERS: Pediatrics
DX: R10.84 Generalized abdominal pain (principal)
CPT/HCPCS: 74176; 93005; 93010